=== PATIENT | male | born 1945 | race Two or more races ===

== ENCOUNTER 2018-11-22 08:42 | Outpatient (CLI) | payer OTHER ==
[~2018-11-22 08:42] MED LIST: AMITRIPTYLINE H25 MG; ATIVAN1 M1; ATIVAN2 M1; CIPRO500 MG PO; CYPROHEPTADINE H4 MG; MIRALAX12 EA PO; NEXIUM40 MG/PACK PO; OSEL75CA PO; PRILOSEC20 MG; TUSSI-PRES LIQ120 ML PO; ZOLOFT100 MG
== END 2018-11-22 10:35 | disposition home or self-care (01) ==
LOC: LAB 08:42 → EDBD 08:42 → LAB 10:35
DX: C61 Malignant neoplasm of prostate (principal); F33.8 Other recurrent depressive disorders; D50.8 Other iron deficiency anemias; D51.8 Other vitamin B12 deficiency anemias; I10 Essential (primary) hypertension; D55.0 Anemia due to glucose-6-phosphate dehydrogenase [G6PD] deficiency; D51.1 Vitamin B12 deficiency anemia due to selective vitamin B12 malabsorption with proteinuria; D51.0 Vitamin B12 deficiency anemia due to intrinsic factor deficiency; E03.8 Other specified hypothyroidism; E06.3 Autoimmune thyroiditis; R97.0 Elevated carcinoembryonic antigen [CEA]; R97.8 Other abnormal tumor markers; R97.21 Rising PSA following treatment for malignant neoplasm of prostate

== ENCOUNTER 2018-11-22 10:13 | Outpatient (CLI) | payer OTHER | END 2018-11-22 10:19 | disposition home or self-care (01) | LOC: SONOGRAMA 10:13 | DX: C61 Malignant neoplasm of prostate (principal); F33.8 Other recurrent depressive disorders; E06.3 Autoimmune thyroiditis ==

== ENCOUNTER → 2019-01-04 10:45 | Outpatient (CLI) | payer OTHER | END | disposition home or self-care (01) | LOC: LAB 10:45 | DX: D50.8 Other iron deficiency anemias (principal); D51.8 Other vitamin B12 deficiency anemias; E03.8 Other specified hypothyroidism ==

== ENCOUNTER 2019-04-12 07:24 | Outpatient (CLI) | payer OTHER | END 2019-04-12 07:32 | disposition home or self-care (01) | LOC: LAB 07:24 | DX: C61 Malignant neoplasm of prostate (principal); F33.8 Other recurrent depressive disorders; D47.2 Monoclonal gammopathy; I10 Essential (primary) hypertension; E03.8 Other specified hypothyroidism; C90.00 Multiple myeloma not having achieved remission ==

== ENCOUNTER 2019-07-19 08:33 | Outpatient (CLI) | payer OTHER | END 2019-07-19 08:39 | disposition home or self-care (01) | LOC: LAB 08:33 | DX: D50.8 Other iron deficiency anemias (principal); I10 Essential (primary) hypertension; C61 Malignant neoplasm of prostate; F33.8 Other recurrent depressive disorders; D51.8 Other vitamin B12 deficiency anemias; E55.9 Vitamin D deficiency, unspecified; K90.89 Other intestinal malabsorption; R97.0 Elevated carcinoembryonic antigen [CEA]; R97.20 Elevated prostate specific antigen [PSA]; R97.8 Other abnormal tumor markers ==

== ENCOUNTER 2021-12-22 07:35 | Inpatient (IN) | payer OTHER ==
[~2021-12-22] VITALS: Ht 162.6 cm; Wt 51.3 kg
[2021-12-22] MEDS ORDERED: RESTORIL30 MG PO (07:47)
[2021-12-24] MEDS ORDERED: ROSUVASTATIN CAL5 MG (10:23)
[2021-12-24] MEDS ORDERED: SERTRALINE HCL100 MG (10:24)
[2021-12-24] MEDS ORDERED: RILUZOLE50 MG (10:24)
== END 2022-01-01 19:53 | disposition home or self-care (01) | DRG 178 ==
LOC: ER 07:35 → SEC-K 12-23 09:57 → MEDI 12-23 11:40
PROVIDERS: ADMIT Internal Medicine; ATTEND Internal Medicine
PROC: B020ZZZ Computerized Tomography (CT Scan) of Brain (ICD-10-PCS; principal; 2021-12-22)
PROC: BW2FZZZ Computerized Tomography (CT Scan) of Neck (ICD-10-PCS; 2021-12-22)
PROC: BW24ZZZ Computerized Tomography (CT Scan) of Chest and Abdomen (ICD-10-PCS; 2021-12-22)
PROC: 4A12X4Z Monitoring of Cardiac Electrical Activity, External Approach (ICD-10-PCS; 2021-12-22)
PROC: 3E0F7GC Introduction of Other Therapeutic Substance into Respiratory Tract, Via Natural or Artificial Opening (ICD-10-PCS; 2021-12-24)
PROC: BW24ZZZ Computerized Tomography (CT Scan) of Chest and Abdomen (ICD-10-PCS; 2022-01-01)
DX: J69.0 Pneumonitis due to inhalation of food and vomit (principal); B37.0 Candidal stomatitis; G12.21 Amyotrophic lateral sclerosis; I25.10 Atherosclerotic heart disease of native coronary artery without angina pectoris; I11.9 Hypertensive heart disease without heart failure; J44.9 Chronic obstructive pulmonary disease, unspecified; E06.3 Autoimmune thyroiditis; I69.391 Dysphagia following cerebral infarction; R13.19 Other dysphagia; F02.80 Dementia in other diseases classified elsewhere, unspecified severity, without behavioral disturbance, psychotic disturbance, mood disturbance, and anxiety; Z86.16 Personal history of COVID-19; Z74.01 Bed confinement status